=== PATIENT | female | born 1975 | race Caucasian/White ===

== ENCOUNTER 2019-11-06 09:42 | Outpatient (CLI) | payer OTHER, SELFPAY ==
--- NOTE | 2019-11-06 | MM_ITS ---
WS: [id number] BILATERAL DIGITAL SCREENING MAMMOGRAPHY WITH CAD CLINICAL INFORMATION: SCREEN HISTORY: Screening mammogram. Right breast soreness COMPARISON: None. TECHNIQUE: Bilateral CC and MLO views. FINDINGS: Scattered fibroglandular densities bilaterally. No suspicious focal mass, asymmetry, calcifications, or architectural distortion. Prior bilateral breast implants. No evidence of malignancy. MM/[place] [id number] IMPRESSION: BI-RADS: 2-Benign FOLLOW UP: 1 Year Follow-up Recommend return to annual screening mammography.
== END 2019-11-06 09:43 | disposition home or self-care (01) ==
PROVIDERS: PCP Nurse Practitioner Family; Visit Provider Nurse Practitioner Family
DX: Z12.31 Encounter for screening mammogram for malignant neoplasm of breast (principal)
CPT/HCPCS: 77067

== ENCOUNTER → 2020-04-24 15:48 | Outpatient (BNVA) | payer OTHER, SELFPAY | PROVIDERS: PCP Nurse Practitioner Family; Visit Provider Family Medicine | DX: Z11.59 Encounter for screening for other viral diseases (principal); Z20.828 Contact with and (suspected) exposure to other viral communicable diseases | CPT/HCPCS: 87635 ==

== ENCOUNTER → 2023-01-22 19:15 | Outpatient (BNVA) | payer OTHER, SELFPAY | PROVIDERS: PCP Nurse Practitioner Family; Visit Provider Nurse Practitioner Family | DX: R11.0 Nausea (principal) | CPT/HCPCS: 87426 ==

== ENCOUNTER 2024-12-26 12:03 | Observation (INO) | payer BC, SELFPAY ==
--- NOTE | 2024-12-19 14:33 | ANES.PREANE2 ---
Pre-Anesthetic Assessment Height/Weight: Height 1.57 m Operation Date: 12/26/24 09:20 Proposed Procedures p Total Abdominal Hysterectomy 33413, N93.9(Not Applicable) - Beau Wooten MD Familial anesthetic complications: Hard to wake up after last surgery Was Beta Mainor taken within 24 hours: N/A Was Clonidine taken within 24 hours: N/A Social No alcohol and No tobacco Marijuana 2x month, vapes daily pack(s) per day Exam alert, oriented x 3, clear to auscultation bilaterally and regular rate & rhythm Airway Submandibular: within normal limits Cervical ROM: within normal limits Mallampati: Class II Dentition: full ([place]) History/ROS No significant history except as noted and No significant complaints Pulmonary None reported CV/HEM Hypertension None reported Hepatic None reported GI None reported Metabolic None reported Musc/skel Osteoarthritis/DJD Neuropsych Anxiety and Depression Anesthetic Plan ASA status: 3 Anesthesia: Anesthesia Evaluation and General Risk of > 500 ml blood loss (7ml/kg in children): No Medications/Allergies Home Medications ?Medication ?Instructions ?Recorded ?Confirmed ?Last Taken ?Type cholecalciferol (vitamin D3) 1,250 1,250 mcg PO DAILY 01/22/23 12/19/24 Unknown History mcg (50,000 unit) tablet fluoxetine 60 mg tablet 30 mg PO DAILY 11/08/24 12/19/24 12/18/24 History calcium 300 mg-D3 20 mcg-magnesium 1 tab PO DAILY 11/14/24 12/19/24 Unknown History 25 mg-coppr 0.5 gr-jwae-izym tablet dextroamphetamine-amphetamine ER 25 mg PO DAILY 11/14/24 12/19/24 12/12/24 History 25 mg 24hr capsule,extend release (Adderall XR) hydroxyzine HCl 25 mg tablet 25 mg PO BID PRN Anxiety 11/14/24 12/19/24 Unknown History meloxicam 15 mg tablet 15 mg PO DAILY 11/14/24 12/19/24 12/18/24 History ondansetron 4 mg disintegrating 4 mg PO Q8H 11/14/24 12/19/24 Unknown History tablet progesterone micronized 200 mg 400 mg PO DAILY 11/14/24 12/19/24 Unknown History capsule (Prometrium) topiramate 50 mg capsule,extended 50 mg PO DAILY 11/14/24 12/19/24 12/18/24 History release 24 hr progesterone micronized 100 mg 100 mg PO DAILY 12/19/24 12/19/24 Unknown History capsule Allergies Allergy/AdvReac Type Severity Reaction Status Date / Time ofloxacin (From Floxin) Allergy ADR-Headach Verified 11/08/24 14:43 e [facility] Anesthesia Family History (Updated 11/08/24 @ 14:55 by Kat Shepard RN) Sister Thyroid disease Grandmother Diabetes Grandfather Heart disease Social History Smoking and tobacco/nicotine status: former use of tobacco/nicotine (Quit 2022)
[2024-12-26] VITALS (16 sets, daily range): BP systolic 94–150; BP diastolic 40–95; PULSE 68–84; RESP 15–20; TEMP 36.3–36.8; O2SAT 90–99; BMI 38.4
--- NOTE | 2024-12-26 01:39 | W.PM.OPSFHP ---
Same Day Surgery H&P Indication for Procedure/HPI DATE OF PROCEDURE: December 26, 2024 CHIEF COMPLAINT/INDICATIONFOR SURGICAL PROCEDURE: menometrorrhagia PREOP DIAGNOSIS: menometrorrhagia PLANNED PROCEDURE: Operation Date: 12/26/24 09:00 Proposed Procedures p Total Abdominal Hysterectomy 43546, N93.9(Not Applicable) - Beau Wooten MD 49 y.o. A1 Periods are ?horrible? h/o endometrial ablation in 2017 bleeding resumed in 2019 with heavy bleeding with clots had tried IUD, did not help presently on estradiol and progesterone, continues to have irregular heavy bleeding Medications/Allergies* Home Medications ?Medication ?Instructions ?Recorded ?Confirmed ?Type cholecalciferol (vitamin D3) 1,250 1,250 mcg PO DAILY 01/22/23 12/19/24 History mcg (50,000 unit) tablet fluoxetine 60 mg tablet 30 mg PO DAILY 11/08/24 12/19/24 History calcium 300 mg-D3 20 mcg-magnesium 1 tab PO DAILY 11/14/24 12/19/24 History 25 mg-coppr 0.5 ec-alyc-puni tablet dextroamphetamine-amphetamine ER 25 mg PO DAILY 11/14/24 12/19/24 History 25 mg 24hr capsule,extend release (Adderall XR) hydroxyzine HCl 25 mg tablet 25 mg PO BID PRN Anxiety 11/14/24 12/19/24 History meloxicam 15 mg tablet 15 mg PO DAILY 11/14/24 12/19/24 History ondansetron 4 mg disintegrating 4 mg PO Q8H 11/14/24 12/19/24 History tablet progesterone micronized 200 mg 400 mg PO DAILY 11/14/24 12/19/24 History capsule (Prometrium) topiramate 50 mg capsule,extended 50 mg PO DAILY 11/14/24 12/19/24 History release 24 hr progesterone micronized 100 mg 100 mg PO DAILY 12/19/24 12/19/24 History capsule Allergies/Adverse Reactions Allergy/AdvReac Type Severity Reaction Status Date / Time ofloxacin (From Floxin) Allergy ADR-Headach Verified 11/08/24 14:43 e Pertinent History/Comorbid Conditions* Family History (Updated 11/08/24 @ 14:55 by Kat Shepard RN) Diabetes Grandmother Heart disease Grandfather Thyroid disease Sister Social History Smoking and tobacco/nicotine status: former use of tobacco/nicotine (Quit 2022) Pertinent Exam Findings alert, oriented x 3, clear to auscultation bilaterally and regular rate & rhythm Recommendations Surgery/Procedure today Coding Level of Care Code Acute Code for Chg Jamal
[2024-12-26 07:53] LABS: OR HCG Qualitative Urine Negative (Negative)
--- NOTE | 2024-12-26 08:14 | W.PM.OPSUD ---
Surgery/Procedure H&P Update DATE OF PROCEDURE: December 26, 2024 DATE H&P PERFORMED: 12/26/24 H&P UPDATE INFORMATION: I have reviewed H&P completed within last 30 days, I have examined patient prior to procedure and No changes to prior documentation PREOP DIAGNOSIS: menometrorrhagia PLANNED PROCEDURE: Operation Date: 12/26/24 09:00 Proposed Procedures p Total Abdominal Hysterectomy 88481, N93.9(Not Applicable) - Beau Wooten MD
[2024-12-26 08:39] LABS: Hematocrit 40.0 % (36-47); Hemoglobin 12.30 g/dL (11.27-16.99); Mean Corpuscular HGB Conc 30.8 g/dL (30-55); Mean Corpuscular Hemoglobin 25.1 pg (27-33); Mean Corpuscular Volume 81.5 fl (85-98); Nucleated Red Blood Cells % 0 %; Platelet Count 270 10^3/cmm (157-399); Red Blood Count 4.91 10^6/uL (3.85-5.65); White Blood Count 8.03 10^3/uL (3.29-11.43)
--- NOTE | 2024-12-26 08:54 | ANES.PREANE2 ---
Pre-Anesthetic Assessment Height/Weight: Height 5 ft 2 in Weight 210 lb Temp Pulse Resp BP Pulse Ox O2 Del Method 98.0 F 84 16 150/95 96 Room Air 12/26/24 08:08 12/26/24 08:08 12/26/24 08:08 12/26/24 08:08 12/26/24 08:08 12/26/24 08:08 Preop Diagnosis: menometrorrhagia Operation Date: 12/26/24 09:00 Proposed Procedures p Total Abdominal Hysterectomy 40797, N93.9(Not Applicable) - Beau Wooten MD Was Beta Mainor taken within 24 hours: N/A Was Clonidine taken within 24 hours: N/A Last intake: Intake Last Liquid Date 12/25/24 Last Liquid Time 22:00 Last Solid Date 12/25/24 Last Solid Time 22:00 Social Tobacco and No alcohol Exam alert, oriented x 3, clear to auscultation bilaterally and regular rate & rhythm Airway Submandibular: within normal limits Cervical ROM: within normal limits Mallampati: Class II Dentition: full Comments: Comments: Crowns Anesthetic Plan ASA status: 3 Anesthesia: General Other: No prior issues with anesthesia NPO since yesterday evening Patient states that she stopped smoking but does admit to vaping Patient states that she does have high blood pressure, preop BP 150/95. No home meds Baseline labs obtained today and acceptable for procedure Plan for general anesthesia Medications/Allergies Home Medications ?Medication ?Instructions ?Recorded ?Confirmed ?Last Taken ?Type cholecalciferol (vitamin D3) 1,250 1,250 mcg PO DAILY 01/22/23 12/19/24 Unknown History mcg (50,000 unit) tablet fluoxetine 60 mg tablet 30 mg PO DAILY 11/08/24 12/19/24 12/18/24 History calcium 300 mg-D3 20 mcg-magnesium 1 tab PO DAILY 11/14/24 12/19/24 Unknown History 25 mg-coppr 0.5 qc-tcse-oltr tablet dextroamphetamine-amphetamine ER 25 mg PO DAILY 11/14/24 12/19/24 12/25/24 History 25 mg 24hr capsule,extend release (Adderall XR) hydroxyzine HCl 25 mg tablet 25 mg PO BID PRN Anxiety 11/14/24 12/26/24 12/26/24 History meloxicam 15 mg tablet 15 mg PO DAILY 11/14/24 12/19/24 12/18/24 History ondansetron 4 mg disintegrating 4 mg PO Q8H 11/14/24 12/19/24 Unknown History tablet progesterone micronized 200 mg 400 mg PO DAILY 11/14/24 12/26/24 12/20/24 History capsule (Prometrium) topiramate 50 mg capsule,extended 50 mg PO DAILY 11/14/24 12/19/24 12/18/24 History release 24 hr progesterone micronized 100 mg 100 mg PO DAILY 12/19/24 12/26/24 12/20/24 History capsule Allergies Allergy/AdvReac Type Severity Reaction Status Date / Time ofloxacin (From Floxin) Allergy ADR-Headach Verified 11/08/24 14:43 e Current Medications Generic Name Dose Route Start Last Admin Trade Name Freq PRN Reason Stop Dose Admin Sodium Chloride 1,000 mls @ 30 mls/hr 12/26/24 07:45 12/26/24 08:16 Sodium Chloride 0.9% IV 12/27/24 07:44 30 mls/hr .Q24H MAXIMILIANO Administration PFSH Anesthesia Family History (Updated 11/08/24 @ 14:55 by Kat Shepard RN) Sister Thyroid disease Grandmother Diabetes Grandfather Heart disease Social History Smoking and tobacco/nicotine status: former use of tobacco/nicotine (Quit 2022) Data Anesthesia 12/26/24 08:13 12/26/24 08:13 Short CBC 12/26/24 Range/Units 08:13 WBC 8.03 (3.29-11.43) 10^3/uL Hgb 12.30 (11.27-16.99) g/dL Hct 40.0 (36-47) % MCV 81.5 L (85-98) fl Plt Count 270 (157-399) 10^3/cmm Neut % (Auto) 59.8 % Neut # (Auto) 4.79 (1.8-7.7) 10^3/uL
[2024-12-26 08:56] LABS: Anion Gap 14.1 (5-19); Blood Urea Nitrogen 13 mg/dL (6-20); Calcium 8.6 mg/dL (8.5-10.5); Carbon Dioxide 26 mmol/L (22-29); Chloride 100 mmol/L (98-107); Creatinine Clr Calc Pharmacy 104.6091; Glucose 100 mg/dL (65-115); Osmolality Calculated 282 mOsm/kg (285-295); Potassium 4.1 mmol/L (3.5-5.1); Sodium 136 mmol/L (136-145)
[2024-12-26] MEDS: ceFAZolin 2,000 mg SDV 2000 MG IVP (09:25)
[2024-12-26] MEDS: metroNIDAZOLE IV 500 MG/100 ML PREMIX 100 MG IV (09:25)
[2024-12-26] MEDS: BUPivacaine liposome 13.3 mg/mL SDV 20 mL 266 MG INJECTION (11:13)
[2024-12-26] MEDS: BUPivacaine 0.5% INJ 30 mL INJECTION (11:14)
--- NOTE | 2024-12-26 11:31 | P.OP_ITS ---
Brief Operative Note Date of procedure: 12/26/24 Pre-op diagnosis: menometrorrhagia Post-op diagnosis: same Procedure Done: Total abdominal hysterectomy Surgeon: Beau Wooten Estimated blood loss (mL): 900 Complications: none Post-op Plan: postoperative care Condition: stable Disposition: floor Coding Level of Care Code Acute Code for [facility]
--- NOTE | 2024-12-26 12:16 | ANE.PACU2 ---
Inpatient post-anesthesia follow up: Airway intact: Yes Vital signs: Temperature 97.4 F Pulse Rate 72 Respiratory Rate 19 Blood Pressure 98/49 Pulse Oximetry 95 Oxygen Delivery Me thod Nasal Cannula Oxygen Flow Rate 6 Fraction of Inspir ed Oxygen Hydration adequate: Yes Nausea and vomiting: No Pain level: 1 Mental status: Baseline
--- NOTE | 2024-12-26 12:50 | PM.OP ---
Operative Report Date of procedure: December 26, 2024 Pre-op diagnosis: menometrorrhagia Post-op diagnosis: same Post-op findings: uterus markedly enlarged with fibroids, approximately 16-wk size uterus boggy to palpation Normal-appearing fallopian tubes Normal ovaries Normal and intact bladder Procedure done: Total abdominal hysterectomy Bilateral salpingectomy Specimens removed/disposition: uterus; fallopian tubes Surgeon: Beau Wooten MD Anesthesia: General Estimated blood loss (mL): 900 Complications: none Findings: uterus markedly enlarged with fibroids, approximately 16-wk size uterus boggy to palpation Normal-appearing fallopian tubes Normal ovaries Normal and intact bladder Condition: stable Disposition: floor Brief History: 49 y.o. with history of menometrorrhagia Procedure: Informed consent obtained. The patient was taken to the operating room and placed supine on the table. General endotracheal anesthesia was induced. The abdomen was prepped and draped in the usual sterile fashion. A lowery catheter was placed which drained clear urine. A midline incision was made over an old scar and carried down through skin and subcutaneous tissue and fascia. The fascia was sharply incised. The rectus muscles were and the abdomen was entered bluntly in the midline. The pelvic contents were visualized and examined. An Rico-O retractor was placed. The bowels were packed out of the way. The uterus was noted to be markedly enlarged, boggy to palpation, and anatomically distorted. The Ligasure device was used throughout for vessel sealing and cutting. The hysterectomy was begun by dividing and ligating the round ligaments bilaterally. The infundibulopelvic ligaments were divided and skeletonized bilaterally. The ovaries were preserved by dividing the uterus from the uteroovarian ligaments. The vesicouterine peritoneal fold was incised in a transverse curvilinear fashion and sharply dissected downward mobilizing the bladder off the lower uterine segment. The uterine vessels were skeletonized and bilaterally divided and ligated. The procedure was carried down on both sides of the uterus until the cardinal uterosacral ligament was reached. The cervix was then incised. The vaginal cuff was identified and the mucosa was from the cervix. In this fashion, the uterus was removed leaving the vaginal cuff. The fallopian tubes were removed along with the uterus. The vaginal cuff was identified and the mucosa was sewn with O-Vicryl. The pelvis was inspected and irrigated. There was no bleeding. The abdominal packs were removed as was the retractor. The fascia was then closed with a continuous stitch of O-Vicryl. The subcutaneous tissue was irrigated and inspected for hemostasis. The skin was then reapproximated using skin kelle. The patient was then placed supine, extubated, and taken to the recovery room. Postoperative condition: stable EBL: 900 cc Complications: none Sponge, needle, instruments counts were correct x two.
[2024-12-26] MEDS: HYDROcodone-acetaminophen 5-325 mg Tablet PO (18:12)
[2024-12-27 01:41] VITALS: BP 149/76; PULSE 81; RESP 16; TEMP 36.8; O2SAT 99
[2024-12-27 06:20] LABS: Hematocrit 31.7 % (36-47); Hemoglobin 9.70 g/dL (11.27-16.99); Mean Corpuscular HGB Conc 30.6 g/dL (30-55); Mean Corpuscular Hemoglobin 24.8 pg (27-33); Mean Corpuscular Volume 81.1 fl (85-98); Platelet Count 246 10^3/cmm (157-399); Red Blood Count 3.91 10^6/uL (3.85-5.65); White Blood Count 15.91 10^3/uL (3.29-11.43)
[2024-12-27 06:33] VITALS: BP 139/81; PULSE 66; RESP 16; TEMP 36.9
[2024-12-27 09:30] VITALS: BP 157/80; PULSE 103; RESP 16; TEMP 36.9; O2SAT 98
--- NOTE | 2024-12-27 11:55 | P.PN_ITS ---
[employer] WORK[employer] Subjective 2 Subjective: Interval history: No c/o Mild abdominal pain, relieved with pain medications Eating, voiding, ambulating well No bleeding No dizziness, weakness, palpitations, shortness of breath Vitals/I&O/Wt Last Vital Signs Temp 98.1 F 12/27/24 15:00 Pulse 75 12/27/24 15:00 Resp 16 12/27/24 15:00 BP 152/76 12/27/24 15:00 Pulse Ox 98 12/27/24 15:00 O2 Del Method Room Air 12/27/24 09:30 O2 Flow Rate 2 12/26/24 17:40 Physical Exam 2 Narrative: General comfortable, awake, alert VS afebrile, normal Lungs: clear Cor: RRR Abd: soft, nontender. Midline vertical wound clean and dry Ext: normal, no edema Pre-Op Hgb 12.3 Post-op Hgb 9.7 Urinary Catheter Management: Gamino Latex Free: Cath Placed During This Visit: yes, but has since been removed by the nurse Reason for Continuing Indwelling Catheter: Decision to DC Catheter Urinary Catheter Date of Insertion: 12/26/24 Urinary Catheter Time of Insertion: 09:20 Date Urinary Catheter Removed: 12/27/24 Time Urinary Catheter Discontinued: 05:30 Data 12/27/24 06:05 12/26/24 08:13 A&P Assessment and plan (1) S/P hysterectomy: POD #1 s/p total abdominal hysterectomy and bilateral salpingectomy Doing well Plan to discharge to home today Precautions / instructions given Call / return if fever, chills, pain, bleeding, nausea, vomiting, leg pain or swelling f/u in one week (2) Anemia: Rx FeSO4 325 mg po bid Encouraged iron-rich foods PDMP PDMP Reviewed: Last Reviewed 12/27/24 15:30 EDT by Beau Wooten MD Attestations 2 Medical Necessity Statement*: patient s/p hysterectomy, plan to discharge to home today Coding Level of Care Code Acute Code for Chg Fwd Diagnoses S/P hysterectomy Z90.710 Anemia D64.9
--- NOTE | 2024-12-27 13:05 | P.DS_ITS ---
Discharge Providers [employer] Date of Admission: 12/26/24 12:03 Date of Discharge: 12/27/24 Attending Provider at Admission: Beau Wooten MD Attending Provider at Discharge: Beau Wooten MD Consults: none Primary [employer]: Beau Wooten MD Primary Care Provider: SAULO Villela Diagnoses at Discharge Discharge Diagnosis (1) S/P hysterectomy: Details from hospital stay: 49 y.o. with long history of heavy and painful periods painful periods with clots continued despite hormonal therapy and endometrial ablation patient was scheduled for hysterectomy total abdominal hysterectomy and bilateral salpingectomy were done without any complications The uterus was noted to be 16-week size, boggy to palpation patient did well postoperatively She had mild incisional pain She was eating and ambulating without any difficulties patient was discharged to home on the first postoperatively day with instructions to take iron tablets BID Status: Acute (2) Anemia: Details from hospital stay: see above Status: Acute Reason for Visit Reason for Visit: N93.9 Brief History: 49 y.o. with long history of heavy and painful periods painful periods with clots continued despite hormonal therapy and endometrial ablation patient was scheduled for hysterectomy Hospital Course Hospital Course 49 y.o. with long history of heavy and painful periods painful periods with clots continued despite hormonal therapy and endometrial ablation patient was scheduled for hysterectomy total abdominal hysterectomy and bilateral salpingectomy were done without any complications The uterus was noted to be 16-week size, boggy to palpation patient did well postoperatively She had mild incisional pain She was eating and ambulating without any difficulties patient was discharged to home on the first postoperatively day with instructions to take iron tablets BID Physical Exam Narrative: General comfortable, awake, alert VS afebrile, normal Lungs: clear Cor: RRR Abd: soft, nontender. Midline vertical wound clean and dry Ext: normal, no edema Urinary Catheter Management: Gamino Latex Free: Cath Placed During This Visit: yes, but has since been removed by the nurse Reason for Continuing Indwelling Catheter: Decision to DC Catheter Urinary Catheter Date of Insertion: 12/26/24 Urinary Catheter Time of Insertion: 09:20 Date Urinary Catheter Removed: 12/27/24 Time Urinary Catheter Discontinued: 05:30 Discharge Data Studies Completed and Pending Pending at discharge Category Date Time Status Pathology: Surgical [PTH] Routine Pth 12/26/24 10:53 Received Laboratory Results WBC 15.91 10^3/uL (3.29-11.43) H 12/27/24 06:05 RBC 3.91 10^6/uL (3.85-5.65) 12/27/24 06:05 Hgb 9.70 g/dL (11.27-16.99) L 12/27/24 06:05 Hct 31.7 % (36-47) L 12/27/24 06:05 MCV 81.1 fl (85-98) L 12/27/24 06:05 MCH 24.8 pg (27-33) L 12/27/24 06:05 MCHC 30.6 g/dL (30-55) 12/27/24 06:05 RDW 17.9 % (12.1-15.1) H 12/27/24 06:05 Plt Count 246 10^3/cmm (157-399) 12/27/24 06:05 MPV 11.3 fL (7.4-10.4) H 12/27/24 06:05 Neut % (Auto) 59.8 % 12/26/24 08:13 Lymph % (Auto) 28.6 % 12/26/24 08:13 Dane % (Auto) 7.8 % 12/26/24 08:13 Eos % (Auto) 2.5 % 12/26/24 08:13 Baso % (Auto) 1.1 % 12/26/24 08:13 Neut # (Auto) 4.79 10^3/uL (1.8-7.7) 12/26/24 08:13 Lymph # (Auto) 2.3 10^3/uL (0.8-4.8) 12/26/24 08:13 Dane # (Auto) 0.6 10^3/uL (0.2-0.9) 12/26/24 08:13 Eos # (Auto) 0.2 10^3/uL (0.0-0.8) 12/26/24 08:13 Baso # (Auto) 0.1 10^3/uL (0.0-0.1) 12/26/24 08:13 Nucleated RBC % (auto) 0 % 12/26/24 08:13 Nucleated RBCs # 0.0 /100WBC 12/26/24 08:13 Sodium 136 mmol/L (136-145) 12/26/24 08:13 Potassium 4.1 mmol/L (3.5-5.1) 12/26/24 08:13 Chloride 100 mmol/L (98-107) 12/26/24 08:13 Carbon Dioxide 26 mmol/L (22-29) 12/26/24 08:13 Anion Gap 14.1 (5-19) 12/26/24 08:13 BUN 13 mg/dL (6-20) 12/26/24 08:13 Creatinine 0.7 mg/dL (0.5-0.9) 12/26/24 08:13 GFR Calculation 88.9 mL/min (90-130) L 12/26/24 08:13 Glucose 100 mg/dL (65-115) 12/26/24 08:13 Calculated Osmolality 282 mOsm/kg (285-295) L 12/26/24 08:13 Calcium 8.6 mg/dL (8.5-10.5) 12/26/24 08:13 Urine HCG, Qual Negative (Negative) 12/26/24 07:45 Procedures Performed Total abdominal hysterectomy and bilateral salpingectomy Vitals Last Vital Signs Temp 98.1 F 12/27/24 15:00 Pulse 75 12/27/24 15:00 Resp 16 12/27/24 15:00 BP 152/76 12/27/24 15:00 Pulse Ox 98 12/27/24 15:00 O2 Del Method Room Air 12/27/24 09:30 O2 Flow Rate 2 12/26/24 17:40 Results Labs OB ([facility]): Hct, (36-47) 31.7 % L 12/27/24 Hgb, (11.27-16.99) 9.70 g/dL L 12/27/24 Plt Count, (157-399) 246 10^3/cmm 12/27/24 Discharge Plan Discharge Patient Disposition: Home Condition: Stable Prescriptions: New oxycodone-acetaminophen [Percocet] 5-325 mg tablet 1 tab PO Q8H PRN (Reason: pain) Qty: 30 0RF Continued cholecalciferol (vitamin D3) 1,250 mcg (50,000 unit) tablet 1,250 mcg PO DAILY fluoxetine 60 mg tablet 30 mg PO DAILY ondansetron 4 mg tablet,disintegrating 4 mg PO Q8H Ca carb-D3-mag ip-klb-rhvl-Zn 300 mg-20 mcg- 25 mg-0.5 mg tablet 1 tab PO DAILY meloxicam 15 mg tablet 15 mg PO DAILY hydroxyzine HCl 25 mg tablet 25 mg PO BID PRN (Reason: Anxiety) progesterone micronized [Prometrium] 200 mg capsule 400 mg PO DAILY Patient Comments: 1 and 1/2 tablet dextroamphetamine-amphetamine [Adderall XR] 25 mg capsule,extended release 24hr 25 mg PO DAILY topiramate 50 mg capsule,extended release 24hr 50 mg PO DAILY progesterone micronized 100 mg capsule 100 mg PO DAILY Discharge Orders: Discharge Order (Routine); Ordered 12/27/24 Ordered By: Beau Wooten Referrals: Beau Wooten MD [Physician, [employer]] - 01/04/25 1:45 pm Discharge Diet: Usual diet Discharge Activity: Increase activity as tolerated Patient Instructions: Acute Wound Care (DC), Opioid Safety (DC), Hysterectomy (GEN), OB Abdominal Surgery - [facility], OB Food/Drug Interaction Guide, Opioid Safety, Post Anesthesia Care, Patient Portal & Stefan Instructions Discharge Attestations [employer] Time Spent in Discharge Care*: less than 30 min Coding Level of Care Code Acute Code for Chg Fwd Diagnoses S/P hysterectomy Z90.710 Anemia D64.9
[2024-12-27 15:00] VITALS: BP 152/76; PULSE 75; RESP 16; TEMP 36.7; O2SAT 98
== END 2024-12-27 15:20 | disposition home or self-care (01) ==
LOC: OBGYN 12:04
PROVIDERS: Student in an Organized Health Care Education/Training Program; Admitting Provider Obstetrics & Gynecology; PCP Nurse Practitioner Family; Visit Provider Obstetrics & Gynecology
PROC: 0UT90ZZ Resection of Uterus, Open Approach (ICD-10-PCS; CPT 58150; principal; 2024-12-26 09:00)
DX: N92.1 Excessive and frequent menstruation with irregular cycle (principal); D64.9 Anemia, unspecified; I10 Essential (primary) hypertension; F41.8 Other specified anxiety disorders; F17.290 Nicotine dependence, other tobacco product, uncomplicated
CPT/HCPCS: 58150; 36415; 51702; 80048; 81025; 85025; 85027; 88307; 96374; 96376; A4216; G0378; J0131; J0666; J0690; J1100; J1171; J1885; J2250; J2405; J2704; J3010; J3490; J7030; J7121; J9999; P9045